=== PATIENT | female | born 1985 | race African-American/Black ===

== ENCOUNTER 2016-11-09 20:27 | Emergency (ER) | payer OTHER ==
[2016-11-09 20:32] VITALS: BP 142/91; BMI 41.1
--- NOTE | 2016-11-09 22:04 | DR.HTN ---
HPI - Primary Care Physician Primary Care Physician: grigsby - Complaints Chief Complaint:: HEADACHE FROM BLOOD PRESSURE I THINK, NAUSEA FOR 2 WEEKS. NO HISTORY OF HYPERTENSION. Self Treatment fo Chief Complaint: TYLENOL - Reviewed Nurses Notes Reviewed: Yes - Source History Provided: Patient - Mode of Arrival Mode of Arrival: Ambulatory - Timing Onset of Chief Complaint: 10/26/16 - Context Treatment of HTN Prior to Arrival: No Rx for HTN meds - Associated Signs and Symptoms HTN Associated Signs and Symptoms: Headache, N/V PMH - PMH Past Medical History: No Past Medical History: Hypertension Past Medical History Comment: HERNIA REPAIR Past Surgical History: Yes Past Surgical History Comment: HERNIA REPAIR - Family History History of Family Medical Conditions: Yes Family Medical History: Diabetes Mellitus, Hypertension - Social History Type of Tobacco Use: Cigarettes Alcohol Use: None Do you use any recreational Drugs:: No Lives With: Family Lives Where: Home - infectious screening Have you traveled outside the country in the last 6 months?: No Isolation: Standard PE - Vital Signs Vitals: Temperature 98.8 F Pulse Rate 88 Respiratory Rate 16 Blood Pressure [Right Arm] 146/90 Blood Pressure [Left Arm] 143/77 Blood Pressure 142/91 O2 Sat by Pulse Oximetry 99 ROR - Labs Reviewed Result Diagrams: 11/09/16 22:15 11/09/16 22:15 Laboratory: WBC 5.2 X10^3/uL (3.6-10.0) 11/09/16 22:15 RBC 4.49 X10^6/uL (3.5-5.4) 11/09/16 22:15 Hgb 14.0 g/dL (12.0-16.0) 11/09/16 22:15 Hct 42.3 % (36.0-47.0) 11/09/16 22:15 MCV 94.2 fL (80.0-100.0) 11/09/16 22:15 MCH 31.3 pg (27.0-34.0) 11/09/16 22:15 MCHC 33.2 g/dL (33.0-35.0) 11/09/16 22:15 RDW 13.1 % (11.6-16.5) 11/09/16 22:15 Plt Count 201 X10^3/uL (150.0-450.0) 11/09/16 22:15 MPV 8.2 fL (7.4-11.0) 11/09/16 22:15 Neut % 46.4 % (42.0-75.0) 11/09/16 22:15 Lymph % 42.0 % (21.0-51.0) 11/09/16 22:15 [place] % 7.6 % (0.0-13.0) 11/09/16 22:15 Eos % 3.0 % (0.9-2.9) H 11/09/16 22:15 Baso % 1.0 % (0.2-1.0) 11/09/16 22:15 Neut # 2.4 x10^3/uL (2.2-4.8) 11/09/16 22:15 Lymph # 2.2 X10^3/uL (1.3-2.9) 11/09/16 22:15 [place] # 0.4 x10^3/uL (0.3-0.8) 11/09/16 22:15 Eos # 0.2 x10^3/uL (0.0-0.2) 11/09/16 22:15 Baso # 0.1 X10^3/uL (0.0-0.1) 11/09/16 22:15 Absolute Nucleated RBC 0.1 /100WBC 11/09/16 22:15 Sodium 143 mmol/L (136-145) 11/09/16 22:15 Corrected Sodium TNP 11/09/16 22:15 Potassium 3.2 mmol/L (3.5-5.1) L 11/09/16 22:15 Chloride 105 mmol/L (98-107) 11/09/16 22:15 Carbon Dioxide 28.2 mmol/L (21-32) 11/09/16 22:15 BUN 7 mg/dL (7-18) 11/09/16 22:15 Creatinine 0.81 mg/dL (0.55-1.02) 11/09/16 22:15 Est GFR (MDRD) Af Amer > 60 (>60) 11/09/16 22:15 Est GFR (MDRD) Non-Af > 60 (>60) 11/09/16 22:15 Glucose 90 mg/dL (65-99) 11/09/16 22:15 Calcium 8.3 mg/dL (8.5-10.1) L 11/09/16 22:15 Corrected Calcium TNP 11/09/16 22:15 Total Bilirubin 0.50 mg/dL (0.2-1.0) 11/09/16 22:15 AST 15 Units/L (15-37) 11/09/16 22:15 ALT 19 Units/L (12-78) 11/09/16 22:15 Alkaline Phosphatase 62 Units/L (46-116) 11/09/16 22:15 Total Protein 7.8 g/dL (6.4-8.2) 11/09/16 22:15 Albumin 3.7 g/dL (3.4-5.0) 11/09/16 22:15 Globulin 4.1 g/dL (2.5-4.5) 11/09/16 22:15 Albumin/Globulin Ratio 0.9 Ratio (1.1-2.1) L 11/09/16 22:15 Specimen Type Clean catch urine 11/09/16 22:09 Urine Color Dark yellow (YELLOW) 11/09/16 22:09 Urine Appearance Slightly hazy (CLEAR) 11/09/16 22:09 Urine pH 5.0 (5.0 - 8.0) 11/09/16 22:09 Ur Specific [place] 1.025 (1.000-1.030) 11/09/16 22:09 Urine Protein 1+ (NEGATIVE) 11/09/16 22:09 Urine Glucose (UA) Negative (NEGATIVE) 11/09/16 22:09 Urine Ketones Negative (NEGATIVE) 11/09/16 22:09 Urine Occult Blood Negative (NEGATIVE) 11/09/16 22:09 Urine Nitrite Negative (NEGATIVE) 11/09/16 22:09 Urine Bilirubin Negative (NEGATIVE) 11/09/16 22:09 Urine Urobilinogen Normal (NORMAL) 11/09/16 22:09 Ur Leukocyte Esterase 1+ (NEGATIVE) 11/09/16 22:09 Urine RBC 2-3 /HPF (NEGATIVE) 11/09/16 22:09 Urine WBC 0-3 /HPF (NEGATIVE) 11/09/16 22:09 Ur Squamous Epith Cells Many /HPF (NEGATIVE) 11/09/16 22:09 Amorphous Sediment Trace /HPF (NEGATIVE) 11/09/16 22:09 Urine Bacteria 1+ /HPF (NEGATIVE) 11/09/16 22:09 Urine Mucus Moderate /HPF (NEGATIVE) 11/09/16 22:09 Ur Culture Indicated? No/not indicated 11/09/16 22:09 - Discharge Plan Condition: Stable Prescriptions: [id number] [Fioricet Tab] 1 tab PO Q8H PRN #20 tab PRN Reason: Migraine Headache Dicyclomine HCl [Bentyl tab 20 mg] 20 mg PO TID #15 tab Diphenoxylate/Atropine [Lomotil] 1 tab PO TID PRN #15 tab PRN Reason: Ondansetron HCl [Zofran Tab 4 mg] 4 mg PO Q8H PRN #12 tab PRN Reason: Nausea/Vomiting - Follow ups/Referrals Follow ups/Referrals: MT GRIGSBY [Primary Care Provider] - 3 days - Instructions Instructions: Viral Gastroenteritis, Adult, [id number], Abdominal Pain, Adult , [id number], General Headache Without Cause, [id number] Additional Instructions: RETURN TO ED IF WORSE. BP CHECK DAILY, CHART AND TAKE TO PC
[2016-11-09] MEDS ORDERED: ZOFRAN INJ 4 MG VIAL IVP ONE (22:06)
[2016-11-09] MEDS ORDERED: DEMEROL INJ IVP ONE (22:06)
[2016-11-09] MEDS ORDERED: ZOFRAN INJ 4 MG VIAL IM ONE (22:09)
[2016-11-09] MEDS ORDERED: DEMEROL INJ IM ONE (22:09)
[2016-11-09] MEDS ORDERED: DEMEROL INJ ONE (22:12)
[2016-11-09] MEDS ORDERED: ZOFRAN INJ 4 MG VIAL ONE (22:12)
[2016-11-09 22:22] LABS: BASOPHILS # (AUTO) 0.1 X10^3/uL (0.0-0.1); EOSINOPHILS # (AUTO) 0.2 x10^3/uL (0.0-0.2); HEMATOCRIT 42.3 % (36.0-47.0); LYMPHOCYTES # (AUTO) 2.2 X10^3/uL (1.3-2.9); MEAN CORPUSCULAR HEMOGLOBIN 31.3 pg (27.0-34.0); MEAN CORPUSCULAR HGB CONC 33.2 g/dL (33.0-35.0); MEAN CORPUSCULAR VOLUME 94.2 fL (80.0-100.0); MEAN PLATELET VOLUME 8.2 fL (7.4-11.0); MONOCYTES # (AUTO) 0.4 x10^3/uL (0.3-0.8); MONOCYTES % (AUTO) 7.6 % (0.0-13.0); NEUTROPHILS # (AUTO) 2.4 x10^3/uL (2.2-4.8); NEUTROPHILS % (AUTO) 46.4 % (42.0-75.0); PLATELET COUNT 201 X10^3/uL (150.0-450.0); RED BLOOD COUNT 4.49 X10^6/uL (3.5-5.4); RED CELL DISTRIBUTION WIDTH 13.1 % (11.6-16.5); WHITE BLOOD COUNT 5.2 X10^3/uL (3.6-10.0)
[2016-11-09 22:23] LABS: BILIRUBIN,URINE NEGATIVE (NEGATIVE); BLOOD/HEMOGLOBIN,URINE NEGATIVE (NEGATIVE); GLUCOSE, URINE NEGATIVE (NEGATIVE); KETONES,URINE NEGATIVE (NEGATIVE); LEUKOCYTE ESTERASE ,URINE 1+ (NEGATIVE); NITRITES,URINE NEGATIVE (NEGATIVE); PROTEIN,URINE 1+ (NEGATIVE); UROBILINOGEN,URINE NORMAL (NORMAL)
[2016-11-09 22:30] LABS: AMORPHOUS SEDIMENT,UR TRACE /HPF (NEGATIVE); APPEARANCE,URINE SLIGHTLY HAZY (CLEAR); BACTERIA,URINE 1+ /HPF (NEGATIVE); COLOR,URINE DARK YELLOW (YELLOW); MUCUS,URINE MODERATE /HPF (NEGATIVE); SQUAMOUS EPITHELIAL CELL,UR MANY /HPF (NEGATIVE)
[2016-11-09 22:34] LABS: ALANINE AMINOTRANSFERASE 19 Units/L (12-78); ALBUMIN 3.7 g/dL (3.4-5.0); ALKALINE PHOSPHATASE 62 Units/L (46-116); ASPARTATE AMINO TRANSFERASE 15 Units/L (15-37); BLOOD UREA NITROGEN 7 mg/dL (7-18); CALCIUM 8.3 mg/dL (8.5-10.1); CARBON DIOXIDE 28.2 mmol/L (21-32); CHLORIDE 105 mmol/L (98-107); CREATININE 0.81 mg/dL (0.55-1.02); GLUCOSE 90 mg/dL (65-99); SODIUM 143 mmol/L (136-145); TOTAL PROTEIN 7.8 g/dL (6.4-8.2); eGFR BLACK RACES > 60 (>60); eGFR NON BLACK RACES > 60 (>60)
--- NOTE | 2016-11-09 22:39 | RAD ---
Acute abdominal series Indication:Abdominal pain Comparison: None available Findings: The trachea is midline. The cardiac silhouette is unremarkable. The lungs are clear without focal infiltrate or effusion. The bony thorax is unremarkable. Flat and upright evaluation of the abdomen demonstrates a normal bowel gas pattern. No pathological soft tissue mass or calcification can be observed. The bony structures are grossly intact. IMPRESSION: 1. No acute cardiopulmonary disease. 2. No evidence for acute abdominal pathology identified. Reported By:
[2016-11-09] MEDS ORDERED: POTASSIUM CHLORIDE LIQ 20 MEQ UDC PO ONE (22:46)
[2016-11-09] MEDS ORDERED: POTASSIUM CHLORIDE LIQ 20 MEQ UDC ONE (23:00)
== END 2016-11-09 23:12 | disposition home or self-care (01) ==
LOC: ER 20:36
DX: R03.0 Elevated blood-pressure reading, without diagnosis of hypertension (principal); R11.10 Vomiting, unspecified; A08.4 Viral intestinal infection, unspecified; R51 Headache
CPT/HCPCS: 36415; 74022; 80053; 81001; 85025; 96372; 99282; 99283; J2175; J2405

== ENCOUNTER 2017-07-08 07:00 | Emergency (ER) | payer OTHER ==
[2017-07-08 07:09] VITALS: BP 177/92; BMI 40.2
--- NOTE | 2017-07-08 07:27 | DR.TOOTHHP ---
HPI - Time Seen Time seen: 07:25 - Primary Care Physician Primary Care Physician: DR. GRIGSBY - HPI Comment HPI Comment: NO FEVER. GETTING WORSE. - Complaints Chief Complaint Doctors Comments: TOOTHACHE TIMES ONE DAY. Chief Complaint:: TOOTHACHE Self Treatment fo Chief Complaint: ALEVE WITHOUT RELIEF - Reviewed Nurses Notes Reviewed: Yes - Source History Provided: Patient - Mode of Arrival Mode of Arrival: Ambulatory - Timing Onset of Chief Complaint: 07/07/17 - Severity Pain Severity: Moderate - Context Onset:: Spontaneous History Of: None - Modifying Factors Worsens:: Nothing Improves:: Analagesics havn't helped - Associated Signs and Symptoms Associated signs and symptoms: None PMH - PMH Past Medical History: Yes Past Medical History: Hypertension Past Surgical History: Yes Past Surgical History Comment: UMBILICAL HERNIA REPAIR - Family History History of Family Medical Conditions: Yes Family Medical History: Diabetes Mellitus, Hypertension - Social History Does patient currently use any type of tobacco product: Yes Have you used tobacco products in the last 12 months: Yes Type of Tobacco Use: Cigarettes Does any household member use tobacco: No Alcohol Use: None Do you use any recreational Drugs:: No Lives With: Family Lives Where: Home - infectious screening In the last 2 months have you had wt loss of >10#?: NO Have you had fever, night sweats or hemotysis?: No Have you traveled outside the country in the last 6 months?: No Isolation: Standard ROS - Review of Systems Constitutional: No Symptoms Reported Eyes: No Symptoms Reported ENTM: Mouth Pain (LT UPPER AND LOOWER MOLARS.). negative: Ear Pain, Nose Discharge, Nose Congestion, Loose Teeth (TOOTHACHE LEFT UPPER AND LOWER MOLARS) , Throat Pain Respiratoy: No Symptoms Reported Cardiovascular: No Symptoms Reported Gastrointestinal/Abdominal: No Symptoms Reported Genitourinary: No Symptoms Reported Neurological: No Symptoms Reported Musculoskeletal: No Symptoms Reported Integumentary: No Symptoms Reported Hematologic/Lymphatic: No Symptoms Reported Endocrine: No Symptoms Reported All Other Systems: Reviewed and Negative PE - Vital Signs Vitals: Temperature 98.2 F Pulse Rate [Right] 88 Pulse Rate 88 Respiratory Rate 20 Blood Pressure [Right Arm] 177/92 Blood Pressure [Left Arm] 143/77 Blood Pressure 177/92 O2 Sat by Pulse Oximetry 97 - General Limitations: No Limitations General Appearance: Alert - Head Head Exam: Normal Inspection - Eyes Eye exam: Normal Appearance - ENT ENT Exam: Normal External Ear Exam External Ear Exam: Normal External Inspection TM/Canal Exam: Bilateral Normal Nose Exam: Normal Nose Exam Mouth Exam: negative: Drooling, Trismus Teeth Exam: Dental Caries, Dental Tenderness # (LEFT UPPER AND LOWER MOLARS), Gingival Swelling Throat Exam: Normal Inspection - Neck Neck Exam: Normal Inspection - Chest Chest Inspection: Symmetric Chest Wall Rise - Respiratory Respiratory Exam: Normal Lung Sounds Bilat Respiratory Exam: Bilateral Clear to Auscultation - Cardiovascular Cardiovascular Exam: Regular Rate, Normal Rhythm, Normal Heart Sounds - Abdominal Exam Abdominal Exam: Normal Bowel Sounds, Soft. negative: Tenderness - Extremities Extremities Exam: Normal Inspection - Back Back Exam: Normal Inspection - Neurologic Neurological Exam: Alert, Oriented X3 - Psychiatric Psychiatric Exam: Normal Affect, Normal Mood - Skin Skin Exam: Normal Color MDM - Differential diagnosis Differential Diagnosis: Other (TOOTHACHE, GINGIVITIS) Course - Treatment Treatment: SEE ORDERS. IM TORADOL AND ROCEPHIN IN ED. - Reevaluation 1st: Improved - Education/Counseling Education/Counseling: Patient, Education Educated On: Diagnosis, Needs for Follow Up - Diagnosis Discharge Problem: Toothache, Gingivitis - Discharge Plan Condition: Stable Prescriptions: Acetaminophen with Codeine [Tylenol/Codeine #3 300-30 mg] 1 tab PO Q4-6H PRN # 15 tab PRN Reason: Pain Amoxicillin [Amoxil 875 mg] 875 mg PO Q12H #20 tab Ibuprofen [MOTRIN TAB 800 MG *] 800 mg PO Q8H PRN #20 tab PRN Reason: Pain/Inflammation - Follow ups/Referrals Follow ups/Referrals: MT GRIGSBY [Primary Care Provider] - 3 days - Instructions Instructions: Dental Abscess, [id number], Gingivitis, [id number] Additional Instructions: RETURN TO ED IF WORSE.
[2017-07-08] MEDS ORDERED: TORADOL 60 MG VIAL IM ONE (07:31)
[2017-07-08] MEDS ORDERED: ROCEPHIN VIAL 1 GM IM ONE (07:31)
[2017-07-08] MEDS ORDERED: ROCEPHIN VIAL 1 GM ONE (07:39)
[2017-07-08] MEDS ORDERED: TORADOL 60 MG VIAL ONE (07:39)
[2017-07-08] MEDS ORDERED: XYLOCAINE 1 % (PLAIN) ONE (07:41)
== END 2017-07-08 08:10 | disposition home or self-care (01) ==
LOC: ER 07:12
DX: K05.10 Chronic gingivitis, plaque induced (principal); K08.89 Other specified disorders of teeth and supporting structures
CPT/HCPCS: 96372; 99282; J0696; J1885; J2001